=== PATIENT | male | born 1965 | race Caucasian/White ===

== ENCOUNTER 2016-07-01 09:33 | Emergency (ER) | payer OTHER | END 2016-07-01 12:35 | disposition home or self-care (01) | LOC: ER1 09:33 | DX: M25.551 Pain in right hip (principal); I10 Essential (primary) hypertension; F17.210 Nicotine dependence, cigarettes, uncomplicated; W17.89XA Other fall from one level to another, initial encounter | CPT/HCPCS: 71020; 73502; 99283 ==

== ENCOUNTER → 2016-07-18 | Outpatient (CLI) | payer OTHER | LOC: RAD 11:48 | DX: M25.551 Pain in right hip (principal); M79.604 Pain in right leg; M79.89 Other specified soft tissue disorders | CPT/HCPCS: 73502; 73590 ==

== ENCOUNTER → 2016-07-21 | Outpatient (CLI) | payer OTHER ==
[2016-07-21 10:01] LABS: HEMOGLOBIN 10.6 gm/dl (14.0-17.5); RED BLOOD COUNT 3.69 M/UL (4.20-5.50); WHITE BLOOD COUNT 7.4 K/UL (4.5-11.0)
== END ==
LOC: LAB 08:53
PROVIDERS: Family Medicine
DX: E78.5 Hyperlipidemia, unspecified (principal); E53.8 Deficiency of other specified B group vitamins; E55.9 Vitamin D deficiency, unspecified; D50.9 Iron deficiency anemia, unspecified
CPT/HCPCS: 36415; 80053; 80061; 82607; 82728; 83540; 83550; 85025

== ENCOUNTER → 2016-08-04 | Outpatient (CLI) | payer OTHER | LOC: LAB 09:11 | PROVIDERS: Family Medicine | DX: M54.5 Low back pain (principal); N18.9 Chronic kidney disease, unspecified; M47.896 Other spondylosis, lumbar region; M47.897 Other spondylosis, lumbosacral region | CPT/HCPCS: 36415; 72110; 80048 ==

== ENCOUNTER → 2016-08-13 | Outpatient (CLI) | payer OTHER | LOC: RAD 11:29 | DX: S59.901A Unspecified injury of right elbow, initial encounter (principal); J20.9 Acute bronchitis, unspecified; J43.9 Emphysema, unspecified; R60.0 Localized edema | CPT/HCPCS: 71020; 73080; 73090 ==

== ENCOUNTER → 2020-04-10 | Outpatient (CLI) | payer OTHER ==
[~2020-04-10] MED LIST: AEROECLIPSE II1 EACH MC; ALBUTEROL1.25 MG/3 INH; ALBUTEROL2.5 MG/3 M INH; AMLODIPINE BESY10 MG PO; AMOX TR-K CLV1 EAC4 PO; ASPIRIN EC81 MG PO; ATORVASTATIN CA80 MG PO; BACLOFEN20 MG PO; BENZTROPINE MESY1 MG PO; COGENTIN 2MG TAB2 MG PO; ENDOCET 10-3251 EACH PO; ENDOCET 5-3251 EACH PO; FLUPHENAZINE HC10 MG PO; FLUTICASONE-SA1 EAC4 INH; GABAPENTIN300 MG PO; HYDROCHLOROTHIA25 MG PO; INCRUSE ELLI62.5 MCG INH; KLONOPIN TAB 00.5 MG PO; LISINOPRIL10 MG PO; LOPRESSOR 50 MG50 MG PO; LOVENOX30 MG/0.3 SQ; MEDROL4 MG PO; NORCO 5-325 TA1 EACH PO; OLANZAPINE20 MG PO; OMEPRAZOLE20 MG PO; PERCOCET 5/325 T1 EA PO; PREDNISONE 50 M50 MG PO; VENLAFAXINE HCL75 MG PO; VITAMIN B-12250 MCG PO; VITAMIN D350 MC3 PO; WELLBUTRIN SR150 M1 PO; ZETIA10 MG PO
== END ==
LOC: KOH-I 11-03 13:00
DX: R91.1 Solitary pulmonary nodule (principal)
CPT/HCPCS: 71250

== ENCOUNTER → 2020-06-07 | Outpatient (CLI) | payer OTHER ==
[2020-06-07 10:49] LABS: HEMOGLOBIN 16.1 gm/dl (14.0-17.5); RED BLOOD COUNT 5.08 M/UL (4.20-5.50); WHITE BLOOD COUNT 8.1 K/UL (4.5-11.0)
[2020-06-07 11:31] LABS: BUN/CREATININE RATIO 16 (0-10)
== END ==
LOC: LAB 09:13
PROVIDERS: Family Medicine
DX: Z12.5 Encounter for screening for malignant neoplasm of prostate (principal); E53.8 Deficiency of other specified B group vitamins; E55.9 Vitamin D deficiency, unspecified; I10 Essential (primary) hypertension; E78.2 Mixed hyperlipidemia
CPT/HCPCS: 36415; 80053; 80061; 82607; 84153; 85027

== ENCOUNTER 2020-06-15 10:17 | Inpatient (IN) | payer OTHER ==
[~2020-06-15] VITALS: Ht 180.3 cm; Wt 108.9 kg
[~2020-06-15 10:17] MED LIST changes: -ALBUTEROL2.5 MG/3 M INH; -AMLODIPINE BESY10 MG PO; -AMOX TR-K CLV1 EAC4 PO; -ASPIRIN EC81 MG PO; -ATORVASTATIN CA80 MG PO; -BACLOFEN20 MG PO; -BENZTROPINE MESY1 MG PO; -COGENTIN 2MG TAB2 MG PO; -ENDOCET 10-3251 EACH PO; -ENDOCET 5-3251 EACH PO; -FLUPHENAZINE HC10 MG PO; -FLUTICASONE-SA1 EAC4 INH; -GABAPENTIN300 MG PO; -HYDROCHLOROTHIA25 MG PO; -INCRUSE ELLI62.5 MCG INH; -KLONOPIN TAB 00.5 MG PO; -LISINOPRIL10 MG PO; -LOPRESSOR 50 MG50 MG PO; -LOVENOX30 MG/0.3 SQ; -OLANZAPINE20 MG PO; -OMEPRAZOLE20 MG PO; -PERCOCET 5/325 T1 EA PO; -VENLAFAXINE HCL75 MG PO; -VITAMIN B-12250 MCG PO; -VITAMIN D350 MC3 PO; -WELLBUTRIN SR150 M1 PO; -ZETIA10 MG PO
[2020-06-15 10:59] LABS: HEMOGLOBIN 14.5 gm/dl (14.0-17.5); RED BLOOD COUNT 4.66 M/UL (4.20-5.50); WHITE BLOOD COUNT 17.1 K/UL (4.5-11.0)
[2020-06-15 11:42] LABS: BUN/CREATININE RATIO 24 (0-10)
[2020-06-15] MEDS ORDERED: VENLAFAXINE HCL75 MG PO (12:23)
[2020-06-15] MEDS ORDERED: OMEPRAZOLE20 MG PO (12:23)
[2020-06-15] MEDS ORDERED: ZETIA10 MG PO (12:23)
[2020-06-15] MEDS ORDERED: AMLODIPINE BESY10 MG PO (12:23)
[2020-06-15] MEDS ORDERED: BENZTROPINE MESY1 MG PO (12:24)
[2020-06-15] MEDS ORDERED: FLUPHENAZINE HC10 MG PO ×2 (12:24→14:50)
[2020-06-15] MEDS ORDERED: ATORVASTATIN CA80 MG PO (12:24)
[2020-06-15] MEDS ORDERED: VITAMIN B-12250 MCG PO (12:25)
[2020-06-15] MEDS ORDERED: LOPRESSOR 50 MG50 MG PO (12:25)
[2020-06-15] MEDS ORDERED: GABAPENTIN300 MG PO (12:26)
[2020-06-15] MEDS ORDERED: WELLBUTRIN SR150 M1 PO (12:26)
[2020-06-15] MEDS ORDERED: KLONOPIN TAB 00.5 MG PO (12:27)
[2020-06-15] MEDS ORDERED: OLANZAPINE20 MG PO (12:28)
[2020-06-15] MEDS ORDERED: VITAMIN D350 MC3 PO (12:28)
[2020-06-15] MEDS ORDERED: FLUTICASONE-SA1 EAC4 INH (12:30)
[2020-06-15] MEDS ORDERED: ASPIRIN EC81 MG PO (12:31)
[2020-06-15] MEDS ORDERED: INCRUSE ELLI62.5 MCG INH (12:31)
[2020-06-15] MEDS ORDERED: BACLOFEN20 MG PO (13:07)
[2020-06-15] MEDS ORDERED: ALBUTEROL2.5 MG/3 M INH (14:48)
[2020-06-16 05:03] LABS: HEMOGLOBIN 14.6 gm/dl (14.0-17.5); RED BLOOD COUNT 4.65 M/UL (4.20-5.50)
[2020-06-16 05:04] LABS: WHITE BLOOD COUNT 10.9 K/UL (4.5-11.0)
[2020-06-16 05:19] LABS: BUN/CREATININE RATIO 18 (0-10)
[2020-06-16 21:25] LABS: CRYPTOCOCCUS NEOFORMANS/GATTII Not Detected (Negative); CYTOMEGALOVIRUS Not Detected (Negative); ENTEROVIRUS Not Detected (Negative); ESCHERICHIA COLI K1 Not Detected (Negative); HAEMOPHILUS INFLUENZAE Not Detected (Negative); HERPES SIMPLEX VIRUS 1 Not Detected (Negative); HERPES SIMPLEX VIRUS 2 Not Detected (Negative); HUMAN HERPESVIRUS 6 Not Detected (Negative); HUMAN PARECHOVIRUS Not Detected (Negative); LISTERIA MONOCYTOGENES Not Detected (Negative); NEISERRIA MENINGITIDIS Not Detected (Negative); STREPTOCOCCUS AGALACTIAE Not Detected (Negative); STREPTOCOCCUS PNEUMONIAE Not Detected (Negative); VARICELLA ZOSTER VIRUS Not Detected (Negative)
[2020-06-16 21:34] LABS: RBC (AUTOMATED) 0 10^6 (0); WBC (AUTOMATED 1 10^3 (0-5)
[2020-06-16 21:35] LABS: GLUCOSE,CSF 74 mg/dL (50-80); TOTAL PROTEIN,CSF 59 mg/dL (20-45)
[2020-06-17 05:06] LABS: HEMOGLOBIN 13.5 gm/dl (14.0-17.5); RED BLOOD COUNT 4.35 M/UL (4.20-5.50)
[2020-06-17 05:08] LABS: WHITE BLOOD COUNT 7.7 K/UL (4.5-11.0)
[2020-06-17 05:24] LABS: BUN/CREATININE RATIO 18 (0-10)
[2020-06-18 05:11] LABS: HEMOGLOBIN 12.2 gm/dl (14.0-17.5); WHITE BLOOD COUNT 6.3 K/UL (4.5-11.0)
[2020-06-18 05:14] LABS: RED BLOOD COUNT 3.9 M/UL (4.20-5.50)
[2020-06-18 05:40] LABS: BUN/CREATININE RATIO 15 (0-10)
[2020-06-18] MEDS ORDERED: BENZTROPINE MESY1 MG PO (13:02)
[2020-06-18] MEDS ORDERED: BACLOFEN20 MG PO (13:08)
[2020-06-18] MEDS ORDERED: VENLAFAXINE HCL75 MG PO (13:08)
[2020-06-18] MEDS ORDERED: COGENTIN 2MG TAB2 MG PO (13:09)
[2020-06-18] MEDS ORDERED: FLUPHENAZINE HC10 MG PO ×2 (13:09)
[2020-06-18] MEDS ORDERED: OLANZAPINE20 MG PO (13:10)
[2020-06-18] MEDS ORDERED: KLONOPIN TAB 00.5 MG PO (13:10)
[2020-06-18] MEDS ORDERED: GABAPENTIN300 MG PO (13:11)
--- NOTE | 2020-06-18 17:11 | NUR ---
SPOKE WITH PT PSYCHIATRY OFFICE TO CONFIRM PT HOME MEDS, HOME MEDS ARE ACCURATE LISTED ON MED REC. DR BIRD NOTIFIED. [facility].
[2020-06-18] MEDS ORDERED: WELLBUTRIN SR150 M1 PO (17:17)
[2020-06-19 05:12] LABS: FREE THYROXINE INDEX 1.2 (1.2-4.9); THYROXINE (T4) 4.9 ug/dL (4.5-12.0)
[2020-06-19 06:22] LABS: HEMOGLOBIN 12.6 gm/dl (14.0-17.5); RED BLOOD COUNT 4.06 M/UL (4.20-5.50); WHITE BLOOD COUNT 7.5 K/UL (4.5-11.0)
[2020-06-19 06:50] LABS: BUN/CREATININE RATIO 14 (0-10)
[2020-06-20 03:07] LABS: RED BLOOD COUNT 4.1 M/UL (4.20-5.50)
[2020-06-20 03:08] LABS: WHITE BLOOD COUNT 9.5 K/UL (4.5-11.0)
[2020-06-20 03:39] LABS: BUN/CREATININE RATIO 21 (0-10)
[2020-06-20 19:11] LABS: HEMOGLOBIN 13.4 gm/dl (14.0-17.5); RED BLOOD COUNT 4.26 M/UL (4.20-5.50)
[2020-06-20 19:15] LABS: WHITE BLOOD COUNT 12.4 K/UL (4.5-11.0)
[2020-06-20 19:33] LABS: BUN/CREATININE RATIO 32 (0-10)
[2020-06-20 23:02] LABS: HEMOGLOBIN 12.5 gm/dl (14.0-17.5); RED BLOOD COUNT 3.96 M/UL (4.20-5.50); WHITE BLOOD COUNT 13.3 K/UL (4.5-11.0)
[2020-06-21 05:28] LABS: HEMOGLOBIN 13.6 gm/dl (14.0-17.5); RED BLOOD COUNT 4.34 M/UL (4.20-5.50); WHITE BLOOD COUNT 12.1 K/UL (4.5-11.0)
[2020-06-21 05:49] LABS: BUN/CREATININE RATIO 31 (0-10)
[2020-06-22 06:45] LABS: HEMOGLOBIN 13.7 gm/dl (14.0-17.5); RED BLOOD COUNT 4.37 M/UL (4.20-5.50); WHITE BLOOD COUNT 8.9 K/UL (4.5-11.0)
[2020-06-22 07:22] LABS: BUN/CREATININE RATIO 30 (0-10)
--- NOTE | 2020-06-23 01:10 | NUR ---
AT 2335 ON 06/22/20, PT HAD SITTER DISCONITNUED R/T [facility]. WCTM
[2020-06-23 05:36] LABS: HEMOGLOBIN 14.2 gm/dl (14.0-17.5); RED BLOOD COUNT 4.56 M/UL (4.20-5.50)
[2020-06-23 06:05] LABS: BUN/CREATININE RATIO 22 (0-10)
[2020-06-24 03:50] LABS: HEMOGLOBIN 14.1 gm/dl (14.0-17.5); RED BLOOD COUNT 4.51 M/UL (4.20-5.50); WHITE BLOOD COUNT 9.6 K/UL (4.5-11.0)
[2020-06-24 04:23] LABS: BUN/CREATININE RATIO 23 (0-10)
[2020-06-25 06:06] LABS: HEMOGLOBIN 14.2 gm/dl (14.0-17.5); RED BLOOD COUNT 4.55 M/UL (4.20-5.50); WHITE BLOOD COUNT 10.9 K/UL (4.5-11.0)
[2020-06-25 06:31] LABS: BUN/CREATININE RATIO 23 (0-10)
--- NOTE | 2020-06-25 10:58 | NUR ---
PATIENT CHANGE HIS MIND, REQUEST TO HAVE HIS LOVENOX INJECTION
[2020-06-25] MEDS ORDERED: LISINOPRIL10 MG PO (15:01)
[2020-06-25] MEDS ORDERED: AMOX TR-K CLV1 EAC4 PO (15:01)
[2020-06-25] MEDS ORDERED: HYDROCHLOROTHIA25 MG PO (15:01)
== END 2020-06-25 17:23 | disposition home or self-care (01) | DRG 871 ==
LOC: ER1 10:17 → CCU 12:01 → CDU 12:01 → PROG CARE 15:00 → CCU 06-16 17:56 → M/S 06-22 20:19
PROVIDERS: Emergency Medicine; Family Medicine; Internal Medicine; Internal Medicine Pulmonary Disease; Physician Assistant Medical; ADMIT Internal Medicine
PROC: 0BH17EZ Insertion of Endotracheal Airway into Trachea, Via Natural or Artificial Opening (ICD-10-PCS; principal; 2020-06-16)
PROC: 5A1945Z Respiratory Ventilation, 24-96 Consecutive Hours (ICD-10-PCS; 2020-06-16)
PROC: 0CJS8ZZ Inspection of Larynx, Via Natural or Artificial Opening Endoscopic (ICD-10-PCS; 2020-06-16)
PROC: 009U3ZX Drainage of Spinal Canal, Percutaneous Approach, Diagnostic (ICD-10-PCS; 2020-06-16)
PROC: B24BZZ4 Ultrasonography of Heart with Aorta, Transesophageal (ICD-10-PCS; 2020-06-17)
DX: A41.9 Sepsis, unspecified organism (principal); J69.0 Pneumonitis due to inhalation of food and vomit; J96.01 Acute respiratory failure with hypoxia; G93.41 Metabolic encephalopathy; J96.02 Acute respiratory failure with hypercapnia; M62.82 Rhabdomyolysis; J44.1 Chronic obstructive pulmonary disease with (acute) exacerbation; E87.2 Acidosis; E87.0 Hyperosmolality and hypernatremia; Z20.822 Contact with and (suspected) exposure to COVID-19; F20.9 Schizophrenia, unspecified; F12.10 Cannabis abuse, uncomplicated; E87.6 Hypokalemia; I10 Essential (primary) hypertension; R53.81 Other malaise; K21.9 Gastro-esophageal reflux disease without esophagitis; E83.39 Other disorders of phosphorus metabolism; E87.70 Fluid overload, unspecified; E78.5 Hyperlipidemia, unspecified; D69.6 Thrombocytopenia, unspecified; R31.0 Gross hematuria; T83.098A Other mechanical complication of other urinary catheter, initial encounter; Y84.6 Urinary catheterization as the cause of abnormal reaction of the patient, or of later complication, without mention of misadventure at the time of the procedure
CPT/HCPCS: ECHO; 31500; 36415; 36600; 70450; 71045; 71250; 80053; 80202; 80307; 81001; 82140; 82150; 82550; 82553; 82607; 82803; 82945; 82962; 83605; 83615; 83690; 83735; 83874; 83880; 84100; 84132; 84157; 84436; 84439; 84443; 84479; 84484; 85025; 85027; 85610; 85730; 86140; 87040; 87070; 87081; 87205; 87483; 89051; 93005; 93306; 94002; 94003; 94640; 94664; 94760; 96365; 97162; 97166; 97530-GP-CQ; 99285; C9113; G0480; J0290; J0360; J1650; J1940; J2060; J2185; J2250; J2405; J2543; J2704; J2920; J3010; J3370; J3411; J3475; J3486; J7030; J7050; J7070; U0002

== ENCOUNTER → 2020-07-11 | Outpatient (CLI) | payer OTHER ==
[~2020-07-11] MED LIST changes: +ALBUTEROL2.5 MG/3 M INH; +AMLODIPINE BESY10 MG PO; +AMOX TR-K CLV1 EAC4 PO; +ASPIRIN EC81 MG PO; +ATORVASTATIN CA80 MG PO; +BACLOFEN20 MG PO; +BENZTROPINE MESY1 MG PO; +COGENTIN 2MG TAB2 MG PO; +ENDOCET 10-3251 EACH PO; +ENDOCET 5-3251 EACH PO; +FLUPHENAZINE HC10 MG PO; +FLUTICASONE-SA1 EAC4 INH; +GABAPENTIN300 MG PO; +HYDROCHLOROTHIA25 MG PO; +INCRUSE ELLI62.5 MCG INH; +KLONOPIN TAB 00.5 MG PO; +LISINOPRIL10 MG PO; +LOPRESSOR 50 MG50 MG PO; +LOVENOX30 MG/0.3 SQ; +OLANZAPINE20 MG PO; +OMEPRAZOLE20 MG PO; +PERCOCET 5/325 T1 EA PO; +VENLAFAXINE HCL75 MG PO; +VITAMIN B-12250 MCG PO; +VITAMIN D350 MC3 PO; +WELLBUTRIN SR150 M1 PO; +ZETIA10 MG PO
[2020-07-11 08:52] LABS: HEMOGLOBIN 12.5 gm/dl (14.0-17.5); RED BLOOD COUNT 4.11 M/UL (4.20-5.50); WHITE BLOOD COUNT 9.8 K/UL (4.5-11.0)
== END ==
LOC: LAB 08:22
PROVIDERS: Family Medicine
DX: I10 Essential (primary) hypertension (principal)
CPT/HCPCS: 80053; 83735; 85027

== ENCOUNTER → 2020-07-30 | Outpatient (CLI) | payer OTHER ==
[2020-07-30 09:38] LABS: HEMOGLOBIN 13.6 gm/dl (14.0-17.5); RED BLOOD COUNT 4.31 M/UL (4.20-5.50); WHITE BLOOD COUNT 6.1 K/UL (4.5-11.0)
[2020-07-30 09:55] LABS: BUN/CREATININE RATIO 14 (0-10)
== END ==
LOC: LAB 08:31
PROVIDERS: Family Medicine
DX: Z12.5 Encounter for screening for malignant neoplasm of prostate (principal); E78.2 Mixed hyperlipidemia; I12.9 Hypertensive chronic kidney disease with stage 1 through stage 4 chronic kidney disease, or unspecified chronic kidney disease; N18.9 Chronic kidney disease, unspecified; D63.1 Anemia in chronic kidney disease
CPT/HCPCS: 36415; 80053; 80061; 82607; 82728; 83540; 83550; 84153; 85025

== ENCOUNTER 2020-08-11 17:22 | Emergency (ER) | payer OTHER ==
[~2020-08-11 17:22] MED LIST changes: -ENDOCET 10-3251 EACH PO; -ENDOCET 5-3251 EACH PO; -LOVENOX30 MG/0.3 SQ; -PERCOCET 5/325 T1 EA PO
[2020-08-11 21:00] LABS: HEMOGLOBIN 13.5 gm/dl (14.0-17.5); RED BLOOD COUNT 4.24 M/UL (4.20-5.50); WHITE BLOOD COUNT 8.6 K/UL (4.5-11.0)
[2020-08-11 21:18] LABS: BUN/CREATININE RATIO 15 (0-10)
[2020-08-11] MEDS ORDERED: PERCOCET 5/325 T1 EA PO (22:16)
== END 2020-08-11 22:35 | disposition home or self-care (01) ==
LOC: ER1 17:22
PROVIDERS: Family Medicine
DX: S82.852A Displaced trimalleolar fracture of left lower leg, initial encounter for closed fracture (principal); E10.9 Type 1 diabetes mellitus without complications; X58.XXXA Exposure to other specified factors, initial encounter
CPT/HCPCS: 27818; 71045; 73600; 73610; 80053; 83036; 85025; 99152; 99284; G0480; J2704

== ENCOUNTER 2020-08-12 09:25 | Emergency (ER) | payer OTHER ==
[~2020-08-12 09:25] MED LIST changes: +PERCOCET 5/325 T1 EA PO
[2020-08-12 10:12] LABS: BUN/CREATININE RATIO 14 (0-10)
[2020-08-12 10:14] LABS: HEMOGLOBIN 12.8 gm/dl (14.0-17.5); RED BLOOD COUNT 4.22 M/UL (4.20-5.50); WHITE BLOOD COUNT 11.4 K/UL (4.5-11.0)
== END 2020-08-12 13:47 | disposition home or self-care (01) ==
LOC: ER1 09:25
PROVIDERS: Emergency Medicine
DX: S82.852A Displaced trimalleolar fracture of left lower leg, initial encounter for closed fracture (principal); Z88.0 Allergy status to penicillin; W19.XXXA Unspecified fall, initial encounter
CPT/HCPCS: 27810; 71045; 73600; 73610; 80053; 85025; 93005; 96374; 96375; 99283; J1170; J2250; J2405; J7040

== ENCOUNTER → 2020-08-16 | Outpatient (CLI) | payer OTHER ==
[~2020-08-16] MED LIST changes: +ENDOCET 10-3251 EACH PO; +ENDOCET 5-3251 EACH PO; +LOVENOX30 MG/0.3 SQ
== END ==
LOC: KOH-I 13:52
DX: Z01.818 Encounter for other preprocedural examination (principal); S82.892A Other fracture of left lower leg, initial encounter for closed fracture
CPT/HCPCS: 73700

== ENCOUNTER 2020-08-19 05:31 | Emergency (ER) | payer OTHER ==
[~2020-08-19 05:31] MED LIST changes: -ENDOCET 10-3251 EACH PO; -ENDOCET 5-3251 EACH PO; -LOVENOX30 MG/0.3 SQ
[2020-08-19] MEDS ORDERED: ENDOCET 5-3251 EACH PO (06:37)
== END 2020-08-19 07:07 | disposition home or self-care (01) ==
LOC: ER1 05:31
DX: S82.852A Displaced trimalleolar fracture of left lower leg, initial encounter for closed fracture (principal); X58.XXXA Exposure to other specified factors, initial encounter
CPT/HCPCS: 29515; 73600; 99283

== ENCOUNTER 2020-08-21 05:57 | Day surgery (SDC) | payer OTHER ==
[~2020-08-21] VITALS: Ht 188 cm; Wt 104.3 kg
[~2020-08-21 05:57] MED LIST changes: +ENDOCET 5-3251 EACH PO
[2020-08-21 06:34] LABS: HEMOGLOBIN 13.3 gm/dl (14.0-17.5); RED BLOOD COUNT 4.22 M/UL (4.20-5.50); WHITE BLOOD COUNT 9.5 K/UL (4.5-11.0)
[2020-08-21 08:31] LABS: BUN/CREATININE RATIO 17 (0-10)
[2020-08-21] MEDS ORDERED: LOVENOX30 MG/0.3 SQ (12:28)
[2020-08-21] MEDS ORDERED: ENDOCET 10-3251 EACH PO (12:28)
[2020-08-22 04:20] LABS: HEMOGLOBIN 11.1 gm/dl (14.0-17.5); RED BLOOD COUNT 3.63 M/UL (4.20-5.50); WHITE BLOOD COUNT 12.1 K/UL (4.5-11.0)
[2020-08-22 04:41] LABS: BUN/CREATININE RATIO 20 (0-10)
--- NOTE | 2020-08-22 10:18 | NUR ---
NURSE KAUFMAN TO REINTERATE INFORMATION OF LOVENOX INJECTION TO PT BROTHER. [facility]. MED CHANGES EXPLAINED. VERBALIZED UNDERSTANDING WITH SIMPLICITY OF UNDERSTANDING. BREE MORENO R.N.
== END 2020-08-22 13:00 | disposition home or self-care (01) ==
LOC: OR 05:57 → M/S 14:18 → OR 14:45
PROVIDERS: Orthopaedic Surgery
PROC: 3E0T3BZ Introduction of Anesthetic Agent into Peripheral Nerves and Plexi, Percutaneous Approach (ICD-10-PCS; 2020-08-21)
PROC: 3E0T3BZ Introduction of Anesthetic Agent into Peripheral Nerves and Plexi, Percutaneous Approach (ICD-10-PCS; 2020-08-21)
PROC: 0QSH04Z Reposition Left Tibia with Internal Fixation Device, Open Approach (ICD-10-PCS; principal; 2020-08-21 10:35)
DX: S82.852A Displaced trimalleolar fracture of left lower leg, initial encounter for closed fracture (principal); G89.18 Other acute postprocedural pain; I10 Essential (primary) hypertension; F20.0 Paranoid schizophrenia; J44.9 Chronic obstructive pulmonary disease, unspecified; E78.5 Hyperlipidemia, unspecified; K21.9 Gastro-esophageal reflux disease without esophagitis; F17.210 Nicotine dependence, cigarettes, uncomplicated; Z20.822 Contact with and (suspected) exposure to COVID-19; Z79.82 Long term (current) use of aspirin; Z79.899 Other long term (current) drug therapy; W01.0XXA Fall on same level from slipping, tripping and stumbling without subsequent striking against object, initial encounter; Y93.01 Activity, walking, marching and hiking; Y92.510 Bank as the place of occurrence of the external cause
CPT/HCPCS: 36415; 71045; 73610; 76000; 80048; 85027; 94664; 97116-GP-CQ; 97161; 97165; 97530-GP-CQ; C1713; J0690; J1100; J1170; J1650; J1885; J2001; J2250; J2270; J2405; J2704; J2710; J2795; J3010; J7120

== ENCOUNTER 2020-09-29 16:18 | Emergency (ER) | payer OTHER ==
[~2020-09-29 16:18] MED LIST changes: +ENDOCET 10-3251 EACH PO; +LOVENOX30 MG/0.3 SQ
== END 2020-09-29 19:29 | disposition left against medical advice (07) ==
LOC: ER1 16:18
DX: Z53.21 Procedure and treatment not carried out due to patient leaving prior to being seen by health care provider (principal)

== ENCOUNTER → 2020-10-22 | Outpatient (CLI) | payer OTHER ==
[~2020-10-22] MED LIST changes: +BENTYL 20MG TAB20 MG PO; +PREDNISONE 10 M10 MG PO; +PREDNISONE 20 M20 MG PO; +PROTONIX40 MG PO; +ZITHROMAX TRI-500 MG PO; +ZOFRAN4 MG PO
[2020-10-22 09:10] LABS: HEMOGLOBIN 14.9 gm/dl (14.0-17.5); RED BLOOD COUNT 5.07 M/UL (4.20-5.50); WHITE BLOOD COUNT 9.4 K/UL (4.5-11.0)
[2020-10-22 09:29] LABS: BUN/CREATININE RATIO 11 (0-10)
== END ==
LOC: LAB 08:52
PROVIDERS: Family Medicine
DX: E78.2 Mixed hyperlipidemia (principal); E55.9 Vitamin D deficiency, unspecified; E53.8 Deficiency of other specified B group vitamins
CPT/HCPCS: 36415; 80053; 80061; 82607; 85027

== ENCOUNTER 2020-11-05 11:02 | Emergency (ER) | payer OTHER ==
[~2020-11-05 11:02] MED LIST changes: -BENTYL 20MG TAB20 MG PO; -PREDNISONE 10 M10 MG PO; -PREDNISONE 20 M20 MG PO; -PROTONIX40 MG PO; -ZITHROMAX TRI-500 MG PO; -ZOFRAN4 MG PO
[2020-11-05 12:46] LABS: HEMOGLOBIN 17.7 gm/dl (14.0-17.5); RED BLOOD COUNT 5.64 M/UL (4.20-5.50); WHITE BLOOD COUNT 11.4 K/UL (4.5-11.0)
[2020-11-05 12:51] LABS: BUN/CREATININE RATIO 12 (0-10)
[2020-11-05] MEDS ORDERED: PREDNISONE 20 M20 MG PO (15:25)
[2020-11-05] MEDS ORDERED: ZITHROMAX TRI-500 MG PO (15:25)
== END 2020-11-05 15:34 | disposition home or self-care (01) ==
LOC: ER1 11:02
PROVIDERS: Physician Assistant
DX: J40 Bronchitis, not specified as acute or chronic (principal); F17.200 Nicotine dependence, unspecified, uncomplicated; Z20.822 Contact with and (suspected) exposure to COVID-19
CPT/HCPCS: 71045; 80053; 82550; 82553; 83874; 84484; 85025; 85379; 99285; U0002

== ENCOUNTER 2020-11-26 07:12 | Emergency (ER) | payer OTHER ==
[~2020-11-26 07:12] MED LIST changes: +PREDNISONE 20 M20 MG PO; +ZITHROMAX TRI-500 MG PO
[2020-11-26 08:00] LABS: HEMOGLOBIN 15.2 gm/dl (14.0-17.5); RED BLOOD COUNT 5.14 M/UL (4.20-5.50); WHITE BLOOD COUNT 8.1 K/UL (4.5-11.0)
[2020-11-26 08:11] LABS: BUN/CREATININE RATIO 10 (0-10)
[2020-11-26] MEDS ORDERED: BENTYL 20MG TAB20 MG PO (09:56)
[2020-11-26] MEDS ORDERED: ZOFRAN4 MG PO (09:56)
== END 2020-11-26 10:18 | disposition home or self-care (01) ==
LOC: ER1 07:12
PROVIDERS: Physician Assistant
DX: R10.9 Unspecified abdominal pain (principal); R19.7 Diarrhea, unspecified; R11.0 Nausea; Z20.822 Contact with and (suspected) exposure to COVID-19; Z90.49 Acquired absence of other specified parts of digestive tract
CPT/HCPCS: 71045; 80053; 82150; 83690; 85025; 94664; 96374; 96375; 99284; J2405; J2930; U0002

== ENCOUNTER 2020-12-03 01:19 | Emergency (ER) | payer OTHER ==
[~2020-12-03 01:19] MED LIST changes: +BENTYL 20MG TAB20 MG PO; +ZOFRAN4 MG PO
[2020-12-03 02:02] LABS: HEMOGLOBIN 14.9 gm/dl (14.0-17.5); RED BLOOD COUNT 4.81 M/UL (4.20-5.50); WHITE BLOOD COUNT 9.5 K/UL (4.5-11.0)
[2020-12-03 02:20] LABS: BUN/CREATININE RATIO 13 (0-10)
== END 2020-12-03 05:10 | disposition home or self-care (01) ==
LOC: ER1 01:19
PROVIDERS: Emergency Medicine
DX: R10.84 Generalized abdominal pain (principal); I10 Essential (primary) hypertension; F17.200 Nicotine dependence, unspecified, uncomplicated
CPT/HCPCS: 71045; 75635; 80053; 81001; 82550; 82553; 83874; 84484; 85025; 93005; 96374; 96375; 99285; J2270; J2405; Q9967

== ENCOUNTER 2020-12-06 04:12 | Emergency (ER) | payer OTHER ==
[2020-12-06 04:33] LABS: HEMOGLOBIN 13.9 gm/dl (14.0-17.5); RED BLOOD COUNT 4.6 M/UL (4.20-5.50)
== END 2020-12-06 05:46 | disposition home or self-care (01) ==
LOC: ER1 04:12
PROVIDERS: Physician Assistant
DX: R10.84 Generalized abdominal pain (principal); E78.5 Hyperlipidemia, unspecified; I10 Essential (primary) hypertension; F17.210 Nicotine dependence, cigarettes, uncomplicated; Z90.49 Acquired absence of other specified parts of digestive tract
CPT/HCPCS: 71045; 80053; 81001; 82550; 82553; 83690; 83874; 84484; 85025; 87086; 93005; 99284

== ENCOUNTER 2020-12-09 07:20 | Emergency (ER) | payer OTHER ==
[2020-12-09 07:58] LABS: HEMOGLOBIN 14.9 gm/dl (14.0-17.5); RED BLOOD COUNT 4.96 M/UL (4.20-5.50); WHITE BLOOD COUNT 10.1 K/UL (4.5-11.0)
[2020-12-09 08:29] LABS: BUN/CREATININE RATIO 11 (0-10)
[2020-12-09] MEDS ORDERED: PROTONIX40 MG PO (09:00)
[2020-12-09] MEDS ORDERED: PREDNISONE 10 M10 MG PO (09:05)
[2020-12-09] MEDS ORDERED: ZOFRAN4 MG PO (09:06)
== END 2020-12-09 09:58 | disposition home or self-care (01) ==
LOC: ER1 07:20
PROVIDERS: Physician Assistant
DX: K21.9 Gastro-esophageal reflux disease without esophagitis (principal); J44.1 Chronic obstructive pulmonary disease with (acute) exacerbation; I10 Essential (primary) hypertension; F17.210 Nicotine dependence, cigarettes, uncomplicated; Z90.49 Acquired absence of other specified parts of digestive tract; Z20.822 Contact with and (suspected) exposure to COVID-19
CPT/HCPCS: 71045; 80053; 81001; 82550; 82553; 83605; 83690; 83874; 84484; 85025; 93005; 96374; 96375; 99284; C9113; G0480; J2405; J2930; U0002

== ENCOUNTER 2020-12-13 01:22 | Emergency (ER) | payer OTHER ==
[~2020-12-13 01:22] MED LIST changes: +PREDNISONE 10 M10 MG PO; +PROTONIX40 MG PO
[2020-12-13 02:34] LABS: RED BLOOD COUNT 5.08 M/UL (4.20-5.50); WHITE BLOOD COUNT 10.8 K/UL (4.5-11.0)
[2020-12-13 02:52] LABS: BUN/CREATININE RATIO 19 (0-10)
== END 2020-12-13 03:40 | disposition left against medical advice (07) ==
LOC: ER1 01:22
PROVIDERS: Student in an Organized Health Care Education/Training Program
DX: R10.9 Unspecified abdominal pain (principal); F17.200 Nicotine dependence, unspecified, uncomplicated
CPT/HCPCS: 80053; 83690; 85025; 99284; Q9967

== ENCOUNTER 2020-12-15 13:23 | Emergency (ER) | payer OTHER ==
[2020-12-15 14:01] LABS: RED BLOOD COUNT 5.15 M/UL (4.20-5.50); WHITE BLOOD COUNT 9.9 K/UL (4.5-11.0)
[2020-12-15 14:23] LABS: BUN/CREATININE RATIO 13 (0-10)
== END 2020-12-15 14:55 | disposition left against medical advice (07) ==
LOC: ER1 13:23
PROVIDERS: Student in an Organized Health Care Education/Training Program
DX: R10.84 Generalized abdominal pain (principal); R11.0 Nausea; F17.200 Nicotine dependence, unspecified, uncomplicated; Z90.49 Acquired absence of other specified parts of digestive tract
CPT/HCPCS: 80053; 81001; 83605; 83690; 85025; 96372; 99284; J1630

== ENCOUNTER 2020-12-24 08:34 | Emergency (ER) | payer OTHER | END 2020-12-24 09:31 | disposition left against medical advice (07) | LOC: ER1 08:34 | DX: R10.11 Right upper quadrant pain (principal); R10.12 Left upper quadrant pain; R10.31 Right lower quadrant pain; R10.32 Left lower quadrant pain; I10 Essential (primary) hypertension; E78.5 Hyperlipidemia, unspecified; F17.210 Nicotine dependence, cigarettes, uncomplicated | CPT/HCPCS: 96372; 99281; J1885 ==

== ENCOUNTER 2021-01-02 11:40 | Emergency (ER) | payer OTHER ==
[2021-01-02 11:55] LABS: HEMOGLOBIN 14.8 gm/dl (14.0-17.5); RED BLOOD COUNT 4.71 M/UL (4.20-5.50); WHITE BLOOD COUNT 6.8 K/UL (4.5-11.0)
[2021-01-02 12:30] LABS: BUN/CREATININE RATIO 11 (0-10)
== END 2021-01-02 12:30 | disposition left against medical advice (07) ==
LOC: ER1 11:40
DX: R10.31 Right lower quadrant pain (principal); R10.32 Left lower quadrant pain; F17.200 Nicotine dependence, unspecified, uncomplicated; Z90.49 Acquired absence of other specified parts of digestive tract
CPT/HCPCS: 71045; 80053; 82550; 82553; 83690; 83874; 84484; 85025; 93005; 99284

== ENCOUNTER → 2021-01-11 | Outpatient (CLI) | payer OTHER | LOC: RAD 11:42 | DX: R93.89 Abnormal findings on diagnostic imaging of other specified body structures (principal) | CPT/HCPCS: 71046 ==

== ENCOUNTER → 2021-04-19 | Outpatient (CLI) | payer OTHER | LOC: KOH-I 13:11 | DX: F17.210 Nicotine dependence, cigarettes, uncomplicated (principal); R91.1 Solitary pulmonary nodule | CPT/HCPCS: 71271 ==

== ENCOUNTER → 2021-05-07 | Outpatient (CLI) | payer OTHER ==
[2021-05-07 09:16] LABS: HEMOGLOBIN 15.9 gm/dl (14.0-17.5); RED BLOOD COUNT 5.32 M/UL (4.20-5.50); WHITE BLOOD COUNT 8.8 K/UL (4.5-11.0)
[2021-05-07 09:43] LABS: BUN/CREATININE RATIO 11 (0-10)
== END ==
LOC: LAB 08:32
PROVIDERS: Family Medicine
DX: E78.2 Mixed hyperlipidemia (principal); E55.9 Vitamin D deficiency, unspecified; E53.8 Deficiency of other specified B group vitamins; I10 Essential (primary) hypertension
CPT/HCPCS: 36415; 80053; 80061; 82607; 83735; 84550; 85027

== ENCOUNTER → 2021-05-21 | Outpatient (CLI) | payer OTHER | LOC: EXRD 09:19 | DX: R79.89 Other specified abnormal findings of blood chemistry (principal); N28.1 Cyst of kidney, acquired; R16.1 Splenomegaly, not elsewhere classified | CPT/HCPCS: 76700 ==

== ENCOUNTER → 2021-06-10 | Outpatient (CLI) | payer OTHER | LOC: LAB 08:32 | DX: R79.89 Other specified abnormal findings of blood chemistry (principal) | CPT/HCPCS: 36415; 80076 ==

== ENCOUNTER → 2021-07-29 | Outpatient (CLI) | payer OTHER | LOC: LAB 13:44 | PROVIDERS: Family Medicine | DX: M54.50 Low back pain, unspecified (principal); G89.29 Other chronic pain; Z79.899 Other long term (current) drug therapy | CPT/HCPCS: 80307 ==

== ENCOUNTER → 2021-09-17 | Outpatient (CLI) | payer OTHER | LOC: KOH-I 13:30 | DX: R91.1 Solitary pulmonary nodule (principal) | CPT/HCPCS: 71250 ==

== ENCOUNTER → 2021-10-03 | Outpatient (CLI) | payer OTHER ==
[2021-10-03 10:54] LABS: HEMOGLOBIN 15.7 gm/dl (14.0-17.5); RED BLOOD COUNT 5.26 M/UL (4.20-5.50); WHITE BLOOD COUNT 8.3 K/UL (4.5-11.0)
[2021-10-03 11:15] LABS: BUN/CREATININE RATIO 10 (0-10)
[2021-10-04 10:14] LABS: CREATININE, URINE 39.9 mg/dL (Not Estab.)
== END ==
LOC: LAB 10:16
PROVIDERS: Family Medicine
DX: E53.8 Deficiency of other specified B group vitamins (principal); E55.9 Vitamin D deficiency, unspecified; E78.2 Mixed hyperlipidemia; E11.9 Type 2 diabetes mellitus without complications; I10 Essential (primary) hypertension
CPT/HCPCS: 36415; 80053; 80061; 82043; 82570; 82607; 83735; 84550; 85027

== ENCOUNTER → 2021-10-21 | Outpatient (CLI) | payer OTHER | LOC: KOH-I 10:42 | DX: M47.26 Other spondylosis with radiculopathy, lumbar region (principal); M47.817 Spondylosis without myelopathy or radiculopathy, lumbosacral region | CPT/HCPCS: 72100 ==